=== PATIENT | male | born 1960 | race Caucasian/White ===

== ENCOUNTER 2024-02-18 15:08 | Emergency (ER) | payer OTHER ==
[~2024-02-18] VITALS: Ht 175.3 cm; Wt 83.8 kg
[2024-02-18 15:24] VITALS: TEMP 97.5
[2024-02-18 16:27] VITALS: BP 159/113; PULSE 81; O2SAT 98
[2024-02-18 16:35] VITALS: RESP 16
[2024-02-18] MEDS: ketorolac trometh. 30mg/ml inj. IM ONE (16:35)
== END 2024-02-18 16:51 | disposition home or self-care (01) ==
LOC: ER 15:09
DX: M25.562 Pain in left knee (principal); M25.462 Effusion, left knee
CPT/HCPCS: 73564; 96372; 99283; J1885